=== PATIENT | male | born 1935 | race Caucasian/White ===

== ENCOUNTER 2023-03-13 11:23 | Emergency (ER) | payer MEDICARE, BC ==
[2023-03-13] MEDS ORDERED: Ondansetron 4 MG/2 ML SDV IVPUSH ONE (11:45)
[2023-03-13] MEDS ORDERED: Sodium Chloride 0.9% 1,000 ML IV ONE (11:45)
[2023-03-13] MEDS ORDERED: Sodium Chloride 0.9% 10 ML Syringe FLUSH PRN (11:46)
[2023-03-13 11:52] LABS: BASOPHILS ABSOLUTE AUTO 0.06 K/uL (0.02-0.10); BASOPHILS PERCENT AUTO 0.7 % (0.0-0.5); EOSINOPHILS ABSOLUTE AUTO 0.38 K/uL (0.04-0.40); EOSINOPHILS PERCENT AUTO 4.6 % (1.0-5.0); HEMATOCRIT 42.7 % (40.0-54.0); HEMOGLOBIN 14.2 g/dL (13.0-18.0); LYMPHOCYTES ABSOLUTE AUTO 1.82 K/uL (1.50-4.00); LYMPHOCYTES PERCENT AUTO 22.1 % (20.0-40.0); MEAN CORPUSCULAR HEMOGLOBIN 32.4 pg (27.0-32.0); MEAN CORPUSCULAR HGB CONC 33.3 g/dL (31.0-35.0); MEAN CORPUSCULAR VOLUME 98 fL (76-96); MEAN PLATELET VOLUME 9.7 fL (6.0-10.0); MONOCYTES ABSOLUTE AUTO 0.65 K/uL (0.20-0.80); MONOCYTES PERCENT AUTO 7.9 % (3.0-10.0); NEUTROPHILS ABSOLUTE AUTO 5.31 K/uL (2.00-7.50); NEUTROPHILS PERCENT AUTO 64.7 % (45.0-70.0); PLATELET COUNT,PLT 212 K/uL (150-400); RED BLOOD CELL COUNT 4.38 M/uL (4.50-6.50); RED CELL DISTRIBUTION WIDTH 13.6 % (11.0-16.0); WHITE BLOOD CELL COUNT,WBC 8.2 K/uL (4.0-11.0)
[2023-03-13 11:54] LABS: APPEARANCE,URINE CLEAR (CLEAR); BILIRUBIN,URINE NEGATIVE (NEGATIVE); COLOR,URINE YELLOW; GLUCOSE,URINE NEGATIVE (NEGATIVE); KETONES,URINE NEGATIVE (NEGATIVE); LEUKOCYTE ESTERASE,URINE NEGATIVE (NEGATIVE); NITRITE,URINE NEGATIVE (NEGATIVE); OCCULT BLOOD,URINE NEGATIVE (NEGATIVE); PROTEIN,URINE TRACE mg/dL (NEGATIVE); UROBILINOGEN,URINE 0.2 E.U./dL (0.2-1.0)
[2023-03-13 11:59] LABS: RBC,URINE 0-5 /HPF; SQUAMOUS EPITHELIAL CELLS,UR OCCASIONAL /HPF; WBC,URINE 0-5 /HPF
[2023-03-13 12:03] LABS: A/G RATIO 1.1 (0.8-2.0); ALBUMIN 3.5 g/dL (3.4-5.0); ANION GAP 16.2 mmol/L (5.0-15.0); BILIRUBIN TOTAL 0.4 mg/dL (0.0-1.0); BUN/CREATININE RATIO 19.6 (6-25); CALCIUM 8.6 mg/dL (8.5-10.1); CARBON DIOXIDE,CO2 27.1 mmol/L (21.0-32.0); CREATININE 1.43 mg/dL (0.70-1.30); EST CRCL DRUG DOSING (CG) 32.85 mL/min; POTASSIUM,K 4.3 mmol/L (3.5-5.1); PROTEIN TOTAL,TP 6.6 g/dL (6.4-8.2)
== END 2023-03-13 13:42 | disposition home or self-care (01) ==
LOC: LB.ED 11:23
DX: T67.5XXA Heat exhaustion, unspecified, initial encounter (principal); R55 Syncope and collapse; Z79.899 Other long term (current) drug therapy; X30.XXXA Exposure to excessive natural heat, initial encounter
CPT/HCPCS: 36415; 70450; 80053; 81001; 84484; 85025; 93005; 96361; 96374; 99284; J2405; J7030